=== PATIENT | male | born 1950 | race Two or more races ===

== ENCOUNTER 2024-04-16 12:46 | Inpatient (IN) | payer OTHER ==
[~2024-04-16] VITALS: Ht 177.8 cm; Wt 84.6 kg
[2024-04-16] VITALS (11 sets, daily range): BP systolic 103–131; BP diastolic 58–67; PULSE 69–77; RESP 12–25; TEMP 97.6–98.4; O2SAT 94–100
--- NOTE | 2024-04-16 13:25 | ED.PDOC ---
History of Present Illness HPI Comments 73 y/o M, with a Hx of HTN, HLD, DM, pancreatic CA, and EtOH and marijuana abuse, is BIBA for STEMI, today. Per EMS report, patient's family, initially, called on patient's behalf after he had sudden witnessed syncopal episode at home, today, following smoking 1x "joint" of marijuana and drinking heavy amoun ts of EtOH, earlier. Patient was found awake but intoxicated, with a blood pressure of 90/56, a blood glucose of 254, and with ST elevations in leads I through IV on scene. All remaining vitals were stated to have been within normal limits. En route, patient was given 323 ASA. At time of assessment, patient remains awake but still in intoxicated state and endorses on having no symptoms at this time. Further Hx cannot be obtained at this time, due to patient's current condition and absence of family/caretakers at this time. Time Seen by MD: 12:50 Reviewed Notes: Nurses Notes, Medications, Allergies Allergies: Coded Allergies: NO KNOWN ALLERGIES (Unverified , 04/16/24) Information Source: Patient, Emergency Med Personnel Mode of Arrival: EMS Severity: Moderate Timing: Hours Duration: Since onset Prehospital treatment: 12 Lead EKG, ASA (324mg ), Tin Pot Operator Past Medical History PAST MEDICAL HISTORY: Cancer (pancreatic CA ), DM, High Lipids, HTN Surgical History: Denies all surgeries Family History Family History: Unknown Social History Smoker: Non-Smoker Alcohol: Heavy Drugs: Marijuana Lives In: Home Cardiovascular: reports: syncope All Other Systems: Reviewed and Negative Physical Exam General Appearance: No Apparent Distress, Normal, Other (intoxicated ) HEENT: Normal ENT Inspection, Pharynx Normal, TMs Normal Neck: Full Range of Motion, Non-Tender, Normal, Normal Inspection Respiratory: Chest Non-Tender, Lungs Clear, No Accessory Muscle Use, No Respiratory Distress, Normal Breath Sounds Cardiovascular: No Edema, No JVD, No Murmur, No Gallop, Normal Peripheral Pulses, Regular Rate/Rhythm Breast Exam: Deferred Gastrointestinal: No Organomegaly, Non Tender, No Pulsatile Mass, Normal Bowel Sounds, Soft Genitalia: Deferred Pelvic: Deferred Rectal: Deferred Extremities: No calf tenderness, Normal capillary refill, Normal inspection, No rmal range of motion, Non-tender, No pedal edema Musculoskeletal : Apperance: Normal Neurologic: Alert, scaler packer II-XII nml as Tested, No Motor Deficits, Normal Affect, Normal Mood, No Sensory Deficits Cerebellar Function: Normal Reflexes: Normal Skin: Dry, Normal Color, Warm Lymphatic: No Adenopathy Was a procedure done? Was a procedure done?: No EKG EKG : Pulse Rate (adult): 68 [place]: Normal Cardiac Rhythm: NSR Block: None Hypertrophy: None Comments ST depression in multiple leads Differential Dx Considerations may include: STEMI, PE, ACS, angina, costochondritis, pericarditis, gastritis, viral syndrome, PNA, EtOH-intoxication X-Ray, Labs, Meds, VS Vital Signs Date Time Temp Pulse Resp B/P (MAP) Pulse Ox O2 Delivery O2 Flow Rate FiO2 04/16/24 13:25 68 04/16/24 12:53 69 12 102/50 (67) 95 04/16/24 12:52 69 12 95 Nasal Cannula* 4 36 04/16/24 12:50 98.4 72 16 92/54 (67) 96 04/16/24 12:48 68 Lab Test 04/16/24 13:00 Range/Units White Blood Count Pending Red Blood Count Pending Hemoglobin Pending Hematocrit Pending Mean Corpuscular Volume Pending Mean Corpuscular Hemoglobin Pending Mean Corpuscular Hemoglobin Concent Pending Red Cell Distribution Width Pending Platelet Count Pending Mean Platelet Volume Pending Neutrophils (%) (Auto) Pending Lymphocytes (%) (Auto) Pending Monocytes (%) (Auto) Pending Basophils (%) (Auto) Pending Neutrophils # (Auto) Pending Lymphocytes # (Auto) Pending Monocytes # (Auto) Pending Prothrombin Time Pending Prothrombin Time INR Pending Activated Partial Thromboplast Time Pending D-Dimer, Quantitative Pending Sodium Level Pending Potassium Level Pending Chloride Level Pending Carbon Dioxide Level Pending Anion Gap Pending Blood Urea Nitrogen Pending Creatinine Pending Glomerular Filtration Rate Calc Pending BUN/Creatinine Ratio Pending Serum Glucose Pending Calcium Level Pending Magnesium Level Pending Total Bilirubin Pending Aspartate Amino Transferase (AST) Pending Alanine Aminotransferase (ALT) Pending Alkaline Phosphatase Pending Troponin I High Sensitivity Pending B-Type Natriuretic Peptide Pending Total Protein Pending Albumin Pending Current Medications Medications (Trade) Dose Ordered Sig/Shashi Route Start Time Stop Time Status Last Admin Sodium Chloride 1,000 ml @ 150 mls/hr Q6H40M ONCE IV 04/16/24 13:00 04/16/24 19:39 04/16/24 13:37 X-Ray, Labs, Meds, VS Comment This 63-year-old male presents emergency room secondary to being altered. In route, the patient endorses drinking alcohol with some chest pain. He was also was noted to have multiple leads with elevation and depression. Cardiology was consulted who noted the patient may be having acute ST-elevation AR. Patient was transferred to the rn labor delivery. Time of 1ST Reevaluation: 13:20 Reevaluation 1ST: Unchanged Patient Education/Counseling: Other (patient is intoxicated ) Family Education/Counseling: No Family Present Departure 1 Departure Time of Disposition: 13:57 Impression: Primary Impression: Chest pain Additional Impressions: Dyspnea STEMI (ST elevation myocardial infarction) Disposition: ADMITTED INPATIENT Admit to: Tele Condition: Critical Critical Care Note Critical Care Time?: No Stability Stability form required: No Heart Score Heart Score: Heart Score Response (Comments) Value History Highly Suspicious 2 EKG Repolarization Disturb 1 Age >65 2 Risk Factors >3 or Hx ASHD 2 Troponin N/A 0 Total 7 I personally scribed for VJ HARO MD ([email or web address]) on 04/16/24 at 13:25. El ectronically submitted by Valentín Castillo [email or web address]). VJ HARO MD Apr 16, 2024 13:25
[2024-04-16] MEDS: LIDOCAINE 2%HCL (LOCAL ANESTH.) INJ 20ML MDV ONE (13:31)
[2024-04-16] MEDS: SODIUM CHL 0.9% 0 ML ONE (13:31)
[2024-04-16] MEDS: IODIXANOL 320MG/ML 100ML BTL IV ONE (13:31)
[2024-04-16] MEDS: ANGIOMAX 250 MG VIAL IV ONE (13:31)
[2024-04-16] MEDS: VERAPAMIL 2.5MG/ML INJ 2ML VIAL IV ONE (13:35)
[2024-04-16] MEDS: NITROGLYCERIN 50MG/250ML 250 ML IV ONE (13:36)
[2024-04-16 13:37] LABS: Basophils # (auto) 0 10 ^3/uL (0-0.2); Basophils % (auto) 0.7 % (0.0-2.0); Eosinophils # (auto) 0.1 10 ^3/uL (0-0.8); Eosinophils % (auto) 1.9 % (0.0-7.0); Hematocrit 33.7 % (41.0-53.0); Hemoglobin 11.7 g/dL (13.5-17.5); Lymphocytes # (auto) 2.2 10 ^3/uL (0.4-5.4); Lymphocytes % (auto) 35.5 % (10.0-50.0); Mean Corpuscular Hemoglobin 32.4 pg (28.0-32.0); Mean Corpuscular Hgb Conc. 34.8 g/dL (32.0-36.0); Mean Corpuscular Volume 93.2 fL (80.0-100.0); Monocytes # (auto) 0.5 10 ^3/uL (0-1.3); Monocytes % (auto) 7.9 % (0.0-12.0); Neutrophils # (auto) 3.3 10 ^3/uL (1.6-8.6); Nucleated Red Blood Cells % 0.1 %; Platelet Count (auto) 179 10^3/uL (140-450); Red Blood Cells 3.62 10^6/uL (4.5-5.90); Red Cell Distribution Width 12.8 % (11.8-14.3); White Blood Cell 6.1 10^3/uL (4.4-10.8)
[2024-04-16] MEDS: SODIUM CHLORIDE 0.9% 1,000 ML IV ONE (13:37)
--- NOTE | 2024-04-16 13:43 | DVH ---
CHEST RADIOGRAPH Indication: chest pain Technique: Single frontal view of the chest was obtained Comparison: None FINDINGS: Lines and Tubes: None Lungs: No focal consolidation. Bronchovascular crowding due to low lung volumes. Mild elevation of th e right hemidiaphragm. Pleura: No effusion. No pneumothorax. Cardiomediastinal contours: Unremarkable Bones: No acute osseous abnormality. Old fracture deformity of left-sided ribs 7 through 9 IMPRESSION: Bronchovascular crowding due to low lung volumes. No focal consolidation.
--- NOTE | 2024-04-16 13:46 | DVH ---
EXAM: CT HEAD WITHOUT CONTRAST HISTORY: altered COMPARISON: None TECHNIQUE: Axial images were obtained and reformatted in coronal and sagittal planes. All CT scans at this medical facility are performed using dose modulation techniques as appropriate t o a performed exam including the following: Automated exposure control was utilized; adjustment of th e MA and/or KV according to patient size; and use of iterative reconstruction technique. CT Dose: CTDI volume is 65.92 mGy. Dose-length product is 1188.36 mGy*cm FINDINGS: Supratentorial Region: No evidence for large acute territorial ischemia. No intracranial hemorrhage is noted. Posterior Fossa: No acute abnormality. Brainstem: Unremarkable. Sellar/Suprasellar Region: Unremarkable. Ventricles, Cisterns, Sulci: Age-appropriate. Orbits: Unremarkable. Paranasal Sinuses: Unremarkable. Mastoid Air Cells: Unremarkable. Vasculature: Unremarkable. Bones/Soft Tissues: No acute abnormality. Other: None. IMPRESSION: 1. Suboptimal motion degraded study. 2. No large acute territorial ischemia or intracranial hemorrhage noted. If there is high clinical c oncern for acute ischemia, further evaluation with MRI or repeat CT could be considered.
[2024-04-16 13:54] LABS: Alanine Aminotransferase 23 U/L (7-40); Albumin 3.8 g/dL (3.2-4.8); Alkaline Phosphatase 85 U/L (46-116); Anion Gap 10 (5-15); BUN/Creatinine Ratio 23.2 (10.0-20.0); Carbon Dioxide 23 mmol/L (20-31); Chloride 98 mmol/L (98-107); Magnesium 2.1 mg/dL (1.6-2.6); Potassium 4.6 mmol/L (3.5-5.1)
[2024-04-16 13:55] LABS: Bilirubin, Total 0.5 mg/dL (0.2-1.0)
[2024-04-16 14:07] LABS: Aspartate Aminotransferase 13 U/L (13-40); Blood Urea Nitrogen 33 mg/dL (9-23); Glucose 230 mg/dL (74-106); Sodium 131 mmol/L (136-145)
[2024-04-16 14:20] LABS: INR 0.97 (0.9-1.15); Partial Thromboplastin Time 21.6 SEC (24.5-34.5); Prothrombin Time 10.3 sec (9.3-11.8)
[2024-04-16] MEDS ORDERED: NITROGLYCERIN 0.4 MG SL TAB SL PRN (14:45)
[2024-04-16] MEDS ORDERED: MORPHINE SULFATE INJ 2 MG/ml SYRG IV PRN (14:45)
--- NOTE | 2024-04-16 16:16 | DVHOP ---
DATE OF SURGERY: 04/16/2024 TECHNIQUE PERFORMED: * Code STEMI. * Insertion of a 6-[place] arterial line from right femoral artery under fluoroscopic guidance. * Left heart catheterization. * Left ventriculogram. * Management of conscious sedation. * [place] selective left coronary angiography. * Right iliofemoral artery angiography. * Arteriotomy. * Angio-Seal of the right femoral artery. COMPLICATIONS: None. ASSISTANTS: Assisted by Anna Ceballos Janice, and Rosas. Today is Wednesday, I saw on 04/16/2024. INDICATIONS: The patient has come into the hospital with left bundle-branch block pattern, altered level of consciousness, and we do not have any previous EKG for comparison. CT of the head was done urgently, which is negative. DESCRIPTION OF PROCEDURE: Risks and benefits have been explained, and informed consent obtained and brought to the lab manager. The patient's right groin was shaved, and was cleaned with soap and Betadine; lidocaine was given IV and IV sedation was given. A 6-[place] arterial line was placed under fluoroscopy. Prior to that, I punctured the right radial artery before for 2 times, but unable to get a wire up. After going smoothly for 2.5 cm or so, from the radial artery was not been continued, so now we have continued from the right femoral artery. A line was placed in a standard manner, and subsequently now, we have put a JL4 catheter and left coronary angiography was done. With the help of JR4 catheter, we also did a right coronary angiography. A complete left heart catheterization had been done. The left ventricle was done utilizing the oblique view with total of 20 mL dye. Post-LV gram, left ventriculography performed with the help of pull-through technique. Aortic pressure was also performed. The pigtail catheter also had been discontinued. At the end of the procedure, we also did a right iliofemoral artery angiography, arteriotomy. Angio-Seal of the right femoral artery also has been done. Procedure completed. IMPRESSION: * Normal left main. * The left anterior descending artery is widely open and is normal. * Circumflex artery, the obtuse marginal artery in the most proximal region is narrowed 50%. It is a large luminal artery. * The patient's right coronary artery is a nondominant artery and normal with an ejection fraction in the range of 50. The ejection fraction of left ventricle is 35%. Apical anterior wall, [id number] hypokinesis has been noted. Dilated left ventricle. CONCLUSION: * This patient have a takotsubo syndrome and the apical anterior wall and apical inferior wall have become hypokinetic. * Dilation of the left ventricle. * Ejection fraction in the range of 35%. * The normal left artery. * The circumflex artery is a dominant artery. * Obtuse marginal artery in the most proximal region is narrowed 50%, but it is not critical. * The right coronary artery is nondominant and is normal. PLAN OF ACTION: At this time, the patient's and several family members have been explained over here, counseling done, questions answered, information given and avoid alcohol. Aspirin to be taken. Beta-veto only if his heart rate remained stable and then put him on cholesterol-reducing medicine. Sunitha Talley MD MP/MANUEL/ANT TID: [id number] RECEIPT: [id number] [facility]
[2024-04-16] MEDS ORDERED: DEXTROSE (50%) 50ML SYRG IV PRN (19:00)
--- NOTE | 2024-04-16 19:08 | DVHHP2 ---
History of Present Illness History of Present Illness 73 y/o M, with a Hx of HTN, HLD, DM, pancreatic CA, and EtOH and marijuana abuse, is BIBA after syncope, enroute confirmation for STEMI. Per EMS report, patient's family, initially, called on patient's behalf after he had sudden witnessed syncopal episode at home, today, following smoking 1x "joint" of marijuana and drinking heavy amounts of EtOH, earlier. Patient was found awake but intoxicated, with a blood pressure of 90/56, a blood glucose of 254, and with ST elevations in leads I through IV on scene. All remaining vitals were stated to have been within normal limits. En route, patient was given 323 ASA. At time of ED assessment, patient remains awake but still in intoxicated state and endorses on having no symptoms at this time. Code STEMI was called, patient is taken to analytical laboratory technician immediately. On recovery patient evaluated and is alert and oriented x3. He does not appear to know how he ended up in the hospital. After procedure he declines any chest pain but does endorse that he has chronic GERD of which he feels some symptoms. No abdominal pain, nausea vomiting, headache, chest pain, urinary symptoms. Review of Systems Review of Systems Per HPI Allergies: Coded Allergies: NO KNOWN ALLERGIES (Unverified , 04/16/24) Medications Current Medications Medications Dose Ordered Sig/Shashi Route Start Time Stop Time Status Last Admin Dose Admin Nitroglycerin 0.4 mg Q5MINP PRN SL 04/16/24 14:45 Morphine Sulfate 2 mg Q30M PRN IV 04/16/24 14:45 Exam Vital Signs Vital Signs Date Time Temp Pulse Resp B/P (MAP) Pulse Ox O2 Delivery O2 Flow Rate FiO2 04/16/24 17:15 97.6 74 18 115/65 (82) 97 97.6 04/16/24 12:52 Nasal Cannula* 4 36 Exam GEN: Healthy appearing, well-developed, NAD. HEENT: NC/AT; MMM. CV: RRR, no m/r/g. LUNGS: CTAB, no w/r/c. ABD: Soft, NT/ND, NBS, no masses or organomegaly. EXT: skin Warm, well perfused. no rashes. No clubbing, cyanosis, or edema. NEURO: Ambulating with no limitations. No focal deficits. Labs/Xrays Labs Test 04/16/24 13:00 Range/Units White Blood Count 6.1 4.4-10.8 10^3/uL Red Blood Count 3.62 L 4.5-5.90 10^6/uL Hemoglobin 11.7 L 13.5-17.5 g/dL Hematocrit 33.7 L 41.0-53.0 % Mean Corpuscular Volume 93.2 80.0-100.0 fL Mean Corpuscular Hemoglobin 32.4 H 28.0-32.0 pg Mean Corpuscular Hemoglobin Concent 34.8 32.0-36.0 g/dL Red Cell Distribution Width 12.8 11.8-14.3 % Platelet Count 179 140-450 10^3/uL Mean Platelet Volume 8.4 6.9-10.8 fL Neutrophils (%) (Auto) 54.0 37.0-80.0 % Lymphocytes (%) (Auto) 35.5 10.0-50.0 % Monocytes (%) (Auto) 7.9 0.0-12.0 % Eosinophils (%) (Auto) 1.9 0.0-7.0 % Basophils (%) (Auto) 0.7 0.0-2.0 % Neutrophils # (Auto) 3.3 1.6-8.6 10 ^3/uL Lymphocytes # (Auto) 2.2 0.4-5.4 10 ^3/uL Monocytes # (Auto) 0.5 0-1.3 10 ^3/uL Eosinophils # (Auto) 0.1 0-0.8 10 ^3/uL Basophils # (Auto) 0 0-0.2 10 ^3/uL Nucleated Red Blood Cells 0.1 % Prothrombin Time 10.3 9.3-11.8 sec Prothrombin Time INR 0.97 0.9-1.15 Activated Partial Thromboplast Time 21.6 L 24.5-34.5 SEC D-Dimer, Quantitative 0.41 0.0-0.49 mg/L FEU Sodium Level 131 L 136-145 mmol/L Potassium Level 4.6 3.5-5.1 mmol/L Chloride Level 98 98-107 mmol/L Carbon Dioxide Level 23 20-31 mmol/L Anion Gap 10 5-15 Blood Urea Nitrogen 33 H 9-23 mg/dL Creatinine 1.42 H 0.700-1.30 mg/dL Glomerular Filtration Rate Calc 52 >90 mL/min BUN/Creatinine Ratio 23.2 H 10.0-20.0 Serum Glucose 230 H 74-106 mg/dL Calcium Level 9.0 8.7-10.4 mg/dL Magnesium Level 2.1 1.6-2.6 mg/dL Total Bilirubin 0.5 0.2-1.0 mg/dL Aspartate Amino Transferase (AST) 13 13-40 U/L Alanine Aminotransferase (ALT) 23 7-40 U/L Alkaline Phosphatase 85 46-116 U/L Troponin I High Sensitivity 7 </=54 ng/L B-Type Natriuretic Peptide 32.99 0-100 pg/mL Total Protein 6.0 5.7-8.2 g/dL Albumin 3.8 3.2-4.8 g/dL Assessment/Plan Assessment/Plan #Acute on chronic systolic heart failure- during angiogram LVEF is 35%, apical anterior wall with moderate to severe hypokinesis. Dilated left ventricle. Defer echo to in network facility [place]. We will defer starting FF medications also to accepting facility. # CAD, non stentable occlusions: Start metoprolol 12 b.i.d., losartan 12g daily, aspirin 81 daily, Lipitor 40 HIS #Code STEMI, RI ruled out - [facility] with no critical stenosis, there is 50% narrowing obtuse marginal artery non stentable. #Syncope, likely from heart failure versus alcohol intoxication. #Alcohol abuse / alcohol dependence - [facility] protocol #History of THC abuse - patient needs have HFrEF medications, cardiology consulted. - need intensive risk factor modification with diabetes and blood pressure control. Needs intensive lifestyle modifications and avoiding alcohol and any unprescribed drugs including THC. - we will need echo and close follow up with Cardiology #Hypertension - #Hyperlipidemia #Diabetes type 2 - mild SSI a.c. HS #History of pancreatic cancer #History GERD-Protonix 40 daily Diet cardiac GI prophylaxis- Protonix 40 daily DVT prophylaxis Lovenox 40 subQ Med tele Full code At this time patient is status post angiogram and is close monitoring given recent syncope likely from takotsubo cardiomyopathy versus acute systolic heart failure symptoms. We will need close monitoring for blood pressure and vitals and telemetry. Patient unstable for transfer at this point we will likely be stable after overnight monitoring. Plan discussed with: Patient Date of Service: Apr 16, 2024 Billing Provider: RADHA MELENDEZ MD Common Visit Codes: [id number] INP/OBS CARE (HIGH) RADHA MELENDEZ MD Apr 16, 2024 19:08
[2024-04-16] MEDS: FOLIC ACID 1 MG TAB PO ONE (19:41)
[2024-04-16] MEDS: PANTOPRAZOLE 40 MG TAB PO ONE (19:41)
[2024-04-16] MEDS: LACTATED RINGER'S 1,000 ML IV SCH (19:42)
[2024-04-16] MEDS: THIAMINE 100mg/ml INJ (200mg/2ml VIAL) IV ONE (19:42)
[2024-04-16] MEDS: ATORVASTATIN 20 MG TAB PO SCH (21:53)
[2024-04-16] MEDS: ACCU-CHEK COMFORT CURVE STRIP VI SCH (21:54)
[2024-04-16] MEDS: METOPROLOL TARTRATE 25 MG TAB PO SCH (21:54)
[2024-04-16] MEDS: InsuLIN REG 1unit/0.01ml Soln (100units/ml) SC SCH (22:00)
[2024-04-17] VITALS (7 sets, daily range): BP systolic 114–136; BP diastolic 51–62; PULSE 62–72; RESP 18–20; TEMP 98–98.1; O2SAT 96–100
--- NOTE | 2024-04-17 00:39 | DVHINCON2 ---
Date of service: Apr 16, 2024 Referring Physician Jennifer Reason for Consultation Severe acrotic anemia History of Present Illness This is a 73 year old male with a PMH of HTN, HLD, DM, pancreatic CA, and EtOH and marijuana abuse who presented to the ED as a code STEMI, today. Per EMS report, patient's family, initially, called on patient's behalf after he had sudden witnessed syncopal episode at home, today, following smoking 1x "joint" of marijuana and drinking heavy amounts of EtOH, earlier. Patient was found awake but intoxicated, with a blood pressure of 90/56, a blood glucose of 254, and with ST elevations in leads I through IV on scene. All remaining vitals were stated to have been within normal limits. En route, patient was given 323 Aspirin. Patient remains awake but still in intoxicated state and endorses on having no symptoms at this time. Further history cannot be obtained at this time, due to patient's current condition and absence of family/caretakers at this time. EKG is NSR at 68. ST depression in multiple leads. BUN 33, KNITTING MACHINE TENDER 1.42. Chest x-ray shows bronchovascular crowding due to low lung volumes. Troponin is WNL. Code STEMI was called, patient is taken to test lab technician immediately. Patient was admitted to the hospital. I am asked to consult on this patient. Family History: Colon cancer G8 MOTHER FH: pancreatic cancer G8 FATHER Allergies: Coded Allergies: NO KNOWN ALLERGIES (Unverified , 04/16/24) Current Medications Current Medications Medications (Trade) Dose Ordered Sig/Shashi Route PRN Reason Start Time Stop Time Status Last Admin Nitroglycerin (Ntrostat Sublingual) 0.4 mg Q5MINP PRN SL FOR CHEST PAIN 04/16/24 14:45 Morphine Sulfate 2 mg Q30M PRN IV FOR CHEST PAIN 04/16/24 14:45 Metoprolol Tartrate (Lopressor Tablet) 12.5 mg BID PO 04/16/24 22:00 04/16/24 21:54 Atorvastatin Calcium (Lipitor) 40 mg HS PO 04/16/24 22:00 04/16/24 21:53 Diagnostic Test (Pha) (Accu-Chek Comfort Curve T) 1 strip ACHS 04/16/24 22:00 04/16/24 21:54 Insulin Human Regular (InsuLIN R) ACHS SC 04/16/24 22:00 Dextrose 50 ml UD PRN IV Blood Sugar LESS THAN 60 04/16/24 19:00 Pantoprazole Sodium (Protonix Tablet) 40 mg DAILY@0600 PO 04/17/24 06:00 Aspirin 81 mg DAILY PO 04/17/24 10:00 Enoxaparin Sodium (Lovenox) 40 mg DAILY SC 04/17/24 10:00 Losartan Potassium (Cozaar Tablet) 12.5 mg DAILY PO 04/17/24 10:00 Thiamine HCl 100 mg DAILY PO 04/17/24 10:00 Folic Acid 1 mg DAILY PO 04/17/24 10:00 Lactated Ringer's 1,000 ml @ 125 mls/hr Q8H IV 04/16/24 19:15 04/16/24 19:42 Review of Systems All Other Systems: Reviewed and Negative Vital Signs Vital Signs Date Time Temp Pulse Resp B/P (MAP) Pulse Ox O2 Delivery O2 Flow Rate FiO2 04/16/24 21:54 71 127/66 04/16/24 21:00 98.4 18 100 98.4 04/16/24 20:00 Room Air* 0 21 Physical Exam GENERAL: Awake ,alert, oriented. Intoxicated. LUNGS: Clear. CARDIOVASCULAR: Heart sounds are good. ABDOMEN: Soft. Labs/Diagnostic Data Labs Test 04/16/24 21:59 04/16/24 13:00 Range/Units POC Glucose 124 H 70-106 mg/dl White Blood Count 6.1 4.4-10.8 10^3/uL Red Blood Count 3.62 L 4.5-5.90 10^6/uL Hemoglobin 11.7 L 13.5-17.5 g/dL Hematocrit 33.7 L 41.0-53.0 % Mean Corpuscular Volume 93.2 80.0-100.0 fL Mean Corpuscular Hemoglobin 32.4 H 28.0-32.0 pg Mean Corpuscular Hemoglobin Concent 34.8 32.0-36.0 g/dL Red Cell Distribution Width 12.8 11.8-14.3 % Platelet Count 179 140-450 10^3/uL Mean Platelet Volume 8.4 6.9-10.8 fL Neutrophils (%) (Auto) 54.0 37.0-80.0 % Lymphocytes (%) (Auto) 35.5 10.0-50.0 % Monocytes (%) (Auto) 7.9 0.0-12.0 % Eosinophils (%) (Auto) 1.9 0.0-7.0 % Basophils (%) (Auto) 0.7 0.0-2.0 % Neutrophils # (Auto) 3.3 1.6-8.6 10 ^3/uL Lymphocytes # (Auto) 2.2 0.4-5.4 10 ^3/uL Monocytes # (Auto) 0.5 0-1.3 10 ^3/uL Eosinophils # (Auto) 0.1 0-0.8 10 ^3/uL Basophils # (Auto) 0 0-0.2 10 ^3/uL Nucleated Red Blood Cells 0.1 % Prothrombin Time 10.3 9.3-11.8 sec Prothrombin Time INR 0.97 0.9-1.15 Activated Partial Thromboplast Time 21.6 L 24.5-34.5 SEC D-Dimer, Quantitative 0.41 0.0-0.49 mg/L FEU Sodium Level 131 L 136-145 mmol/L Potassium Level 4.6 3.5-5.1 mmol/L Chloride Level 98 98-107 mmol/L Carbon Dioxide Level 23 20-31 mmol/L Anion Gap 10 5-15 Blood Urea Nitrogen 33 H 9-23 mg/dL Creatinine 1.42 H 0.700-1.30 mg/dL Glomerular Filtration Rate Calc 52 >90 mL/min BUN/Creatinine Ratio 23.2 H 10.0-20.0 Serum Glucose 230 H 74-106 mg/dL Calcium Level 9.0 8.7-10.4 mg/dL Magnesium Level 2.1 1.6-2.6 mg/dL Total Bilirubin 0.5 0.2-1.0 mg/dL Aspartate Amino Transferase (AST) 13 13-40 U/L Alanine Aminotransferase (ALT) 23 7-40 U/L Alkaline Phosphatase 85 46-116 U/L Troponin I High Sensitivity 7 </=54 ng/L B-Type Natriuretic Peptide 32.99 0-100 pg/mL Total Protein 6.0 5.7-8.2 g/dL Albumin 3.8 3.2-4.8 g/dL Assessment Acute on chronic systolic heart failure. CAD, non stentable occlusions. Code STEMI. Syncope, likely from heart failure versus alcohol intoxication. Alcohol abuse / alcohol dependence. History of THC abuse. Hypertension. Hyperlipidemia. Diabetes type 2. History of pancreatic cancer . History GERD. Plan/Recommendation I agree with your ongoing assessment and care of plan. Left heart catheterization. Risks and benefits have been explained, and informed consent obtained Aspirin, Lipitor, Metoprolol. DVT and GI prophylactics. Losartan. Morphine for pain management. Additional plan as per the hospital course. A total of 45 minutes was spent reviewing the patient record, examining the patient, making a diagnostic and therapeutic plan, discussing this plan with [facility] [place] personnel, following up on diagnostic studies and following the patient for clinical stability excluding any and all procedures. At least 50% of this time was spent in direct, [id number] contact. Plan discussed with: Patient ADY WATKINS MD Apr 16, 2024 22:57
[2024-04-17] MEDS: PANTOPRAZOLE 40 MG TAB PO SCH (05:47)
[2024-04-17] MEDS: FOLIC ACID 1 MG TAB PO SCH (09:27)
[2024-04-17] MEDS: THIAMINE HCL 100 MG TAB PO SCH (09:28)
[2024-04-17] MEDS: LOSARTAN POTASSIUM 25 MG TAB PO SCH (09:30)
[2024-04-17] MEDS: ENOXAPARIN SOD 40 MG/0.4 ML SYRINGE SC SCH (09:35)
[2024-04-17] MEDS: ASPirin 81 mg TAB PO SCH (10:00)
[2024-04-17] MEDS: METOPROLOL TARTRATE 25 MG TAB PO ONE (10:03)
[2024-04-17] MEDS: ATORVASTATIN 20 MG TAB PO ONE (10:03)
[2024-04-17] MEDS: ASPirin 81 mg TAB PO ONE (10:03)
[2024-04-17] MEDS: LOSARTAN POTASSIUM 25 MG TAB PO ONE (10:03)
--- NOTE | 2024-04-17 10:55 | DVHSR ---
APPROVED REPORT EXAM: Two-dimensional and M-mode echocardiogram with Doppler and color Doppler. Blood Pressure: 131/67 mmHg INDICATION S/P STEMI RISK FACTORS Height: 5'10", Weight: 185 DIMENSIONS LVDd5.4 (3.8-5.7cm)LA (2D)4.6 (1.9-4.0cm)Aortic Root3.7 (2.0-3.7cm) LVDs4.3 (2.5-4.0cm)LA (MM) (1.9-4.0cm)Aortic Cusp Exc2.3 (1.5-2.0cm) EF (%) 40.0 (55-70%)Rt. Atrium4.2 (1.9-4.0cm)Asc. Aorta cm IVSd1.6 (0.7-1.1cm)RV (D)3.7 (1.8-2.4cm) PWd1.0 (0.7-1.1cm) Mitral Valve MitralMitral Stenosis E wave0.40m/sMV Mean GR.mmHg A wave0.81m/sMV Peak GR.mmHg E/A ratio0.52D MVAcm2 DECEL [id number] 1/2 Timems Aortic Valve Aortic ValveAortic Stenosis V10.82m/Mata Mean GR.2mmHg V21.05m/Mata Peak GR.4mmHg LVOT Diameter2.4 (1.8-2.4cm)Doppler AVA3.53cm2 AI P 1/2 [id number] Pulmonic Valve V20.71m/s Other Information Technically limited study due to body habitus. Conclusion DILATED ALL CARDIAC CHAMBERS LV IS MODERATELY DILATED AND GLOBALLY HYPOKINETIC LV EJECTION FRACTION IS 40% AND IS REDUCED NORMAL VALVES NO EFFUSION STUDY CONSISTENT WITH DILATED CARDIOMYOPATHY
--- NOTE | 2024-04-17 14:21 | DVHDS2 ---
Discharge Summary Date of Admission Apr 16, 2024 at 14:38 Date of Discharge: Apr 17, 2024 Labs/Diagnostic Data: Laboratory Results Test 04/17/24 11:47 04/16/24 13:00 POC Glucose 212 mg/dl (70-106) White Blood Count 6.1 10^3/uL (4.4-10.8) Red Blood Count 3.62 10^6/uL (4.5-5.90) Hemoglobin 11.7 g/dL (13.5-17.5) Hematocrit 33.7 % (41.0-53.0) Mean Corpuscular Volume 93.2 fL (80.0-100.0) Mean Corpuscular Hemoglobin 32.4 pg (28.0-32.0) Mean Corpuscular Hemoglobin Concent 34.8 g/dL (32.0-36.0) Red Cell Distribution Width 12.8 % (11.8-14.3) Platelet Count 179 10^3/uL (140-450) Mean Platelet Volume 8.4 fL (6.9-10.8) Neutrophils (%) (Auto) 54.0 % (37.0-80.0) Lymphocytes (%) (Auto) 35.5 % (10.0-50.0) Monocytes (%) (Auto) 7.9 % (0.0-12.0) Eosinophils (%) (Auto) 1.9 % (0.0-7.0) Basophils (%) (Auto) 0.7 % (0.0-2.0) Neutrophils # (Auto) 3.3 10 ^3/uL (1.6-8.6) Lymphocytes # (Auto) 2.2 10 ^3/uL (0.4-5.4) Monocytes # (Auto) 0.5 10 ^3/uL (0-1.3) Eosinophils # (Auto) 0.1 10 ^3/uL (0-0.8) Basophils # (Auto) 0 10 ^3/uL (0-0.2) Nucleated Red Blood Cells 0.1 % Prothrombin Time 10.3 sec (9.3-11.8) Prothrombin Time INR 0.97 (0.9-1.15) Activated Partial Thromboplast Time 21.6 SEC (24.5-34.5) D-Dimer, Quantitative 0.41 mg/L FEU (0.0-0.49) Sodium Level 131 mmol/L (136-145) Potassium Level 4.6 mmol/L (3.5-5.1) Chloride Level 98 mmol/L (98-107) Carbon Dioxide Level 23 mmol/L (20-31) Anion Gap 10 (5-15) Blood Urea Nitrogen 33 mg/dL (9-23) Creatinine 1.42 mg/dL (0.700-1.30) Glomerular Filtration Rate Calc 52 mL/min (>90) BUN/Creatinine Ratio 23.2 (10.0-20.0) Serum Glucose 230 mg/dL (74-106) Calcium Level 9.0 mg/dL (8.7-10.4) Magnesium Level 2.1 mg/dL (1.6-2.6) Total Bilirubin 0.5 mg/dL (0.2-1.0) Aspartate Amino Transferase (AST) 13 U/L (13-40) Alanine Aminotransferase (ALT) 23 U/L (7-40) Alkaline Phosphatase 85 U/L (46-116) Troponin I High Sensitivity 7 ng/L (</=54) B-Type Natriuretic Peptide 32.99 pg/mL (0-100) Total Protein 6.0 g/dL (5.7-8.2) Albumin 3.8 g/dL (3.2-4.8) Other Laboratory Tests 04/16/24 13:00 Brief Hx & Hospital Course: see dictated note Condition at Discharge: Fair Final Diagnosis/Problems List chf Discharge Disposition: Acute Care Facility Discharge Instruct/Medications Diet: Consistent carbohydrate, Cardiac 2g Na,low cholest Activity: No Restrictions, As Tolerated Follow Up/Referral: fu with [facility] Medications: per jun Discharge Statement: "Patient was advised to return to the ER or call 911 if any headaches, dizziness, shortness of breath, chest pain, abdominal pain, bleeding, fevers, or worsening of medical condition. Patient was counseled about treatment plan, medications, possible side effects, patientverbalized understanding. All questions were answered to the best of my ability. This discharge took greater then 30 minutes in planning, reviewing documentation, counseling the patient, and discussing with other team members." ASSESSMENT ASSESSMENT Assessment chf Date of Service: Apr 17, 2024 Billing Provider: RADHA POLANCO MD Common Visit Codes: 48870-YGW/OBS DISCH DAY >30min Secondary Visit Codes: 58070-NQJKW CHNG SMOKING >10MIN, 53887-[id number] CARE PLAN 30 MINUTES RADHA POLANCO MD Apr 17, 2024 14:21
--- NOTE | 2024-04-17 14:57 | DVHDS ---
DATE OF DISCHARGE: 04/17/2024 TRANSFER SUMMARY DATE OF TRANSFER: 04/17/2024 HISTORY OF PRESENT ILLNESS: The patient is a 73-year-old gentleman who was admitted with history of syncopal episode after he had heavy amounts of alcohol and smoke marijuana. The patient was also noted to have low blood pressure at the site. The patient has history of hypertension, diabetes, prostate cancer and chronic GERD. HOSPITAL COURSE: The patient had a chest x-ray that showed evidence of cardiomegaly with a head CT that showed no acute ischemia. The patient was seen in Cardiology consult by Dr. Talley. The patient had an echocardiogram done that showed ejection fraction of about 40%. The patient underwent coronary angiography that showed evidence of ejection fraction 35% with takotsubo syndrome with apical anterior wall and apical inferior wall hypokinesis. He had a 50% narrowing of the obtuse marginal artery. The patient will now be transferred to [facility] for further management. FINAL DIAGNOSES: Therefore, * Syncope with takotsubo syndrome. * Likely acute systolic/diastolic heart failure. * Hyponatremia. * Acute renal failure, questionable vasomotor nephropathy. * Diabetes mellitus. * History of hypertension. * Hyperlipidemia. * History of prostate cancer. * Tobacco abuse, for which the patient was counseled to quit. Nicotine patch was refused. Time spent was 11 minutes. * Alcohol and marijuana abuse. Advance care planning time was 19 minutes. The patient is a full code. Time spent in discharge planning and review of plan with the patient's family with whom I also reviewed the angiography report and paperwork was 41 minutes. MD RUSSEL Lerma/NÉSTOR TID: [id number] RECEIPT: [id number]
[2024-04-17 17:09] LABS: Urine Bacteria None Seen /hpf (None Seen)
[2024-04-17 17:35] LABS: Urine Blood Negative /uL (Negative); Urine Clarity Clear (Clear); Urine Color Light-Yellow (Yellow); Urine Protein, UAD Negative (Negative); Urine Urobilinogen Normal (Negative); Urine WBC 1 /hpf (0 - 3); Urine pH 6.5 (5.0-9.0)
--- NOTE | 2024-04-17 22:55 | DVHPN2 ---
Progress Note - Dictate Date Seen: Apr 17, 2024 Medical Necessity Reason Pt with a Central, PICC or Fol: No Subjective Patient was seen and evaluated in follow up. Patient underwent left heart catheterization, [place] selective left coronary angiography. This patient have a takotsubo syndrome and the apical anterior wall and apical inferior wall have become hypokinetic. Dilation of the left ventricle. Ejection fraction in the range of 35%. The normal left artery. The circumflex artery is a dominant artery. Obtuse marginal artery in the most proximal region is narrowed 50%, but it is not critical. The right coronary artery is nondominant and is normal. At this time, the patient's and several family members have been explained over here, counseling done, questions answered, information given and avoid alcohol. Aspirin to be taken. Beta-veto only if his heart rate remained stable and then put him on cholesterol-reducing medicine. vital signs Vital Sign Date Time Temp Pulse Resp B/P (MAP) Pulse Ox O2 Delivery O2 Flow Rate FiO2 04/17/24 22:11 70 134/63 04/17/24 17:10 98.1 18 96 98.1 04/17/24 08:00 Room Air* 0 21 Total Intake and Output 04/16/24 04/16/24 04/17/24 15:00 23:00 07:00 Intake Total 950 ml 600 ml Output Total 600 ml Balance 350 ml 600 ml medications Current Medications Medications Dose Ordered Sig/Shashi Route Start Time Stop Time Status Last Admin Dose Admin Nitroglycerin 0.4 mg Q5MINP PRN SL 04/16/24 14:45 Morphine Sulfate 2 mg Q30M PRN IV 04/16/24 14:45 Metoprolol Tartrate 12.5 mg BID PO 04/16/24 22:00 04/17/24 22:11 12.5 MG Atorvastatin Calcium 40 mg HS PO 04/16/24 22:00 04/17/24 22:07 40 MG Diagnostic Test (Pha) 1 strip ACHS 04/16/24 22:00 04/17/24 17:57 1 STRIP Insulin Human Regular ACHS SC 04/16/24 22:00 04/17/24 12:09 4 UNITS Dextrose 50 ml UD PRN IV 04/16/24 19:00 Pantoprazole Sodium 40 mg DAILY@0600 PO 04/17/24 06:00 04/17/24 05:47 40 MG Aspirin 81 mg DAILY PO 04/17/24 10:00 Enoxaparin Sodium 40 mg DAILY SC 04/17/24 10:00 04/17/24 09:35 40 MG Losartan Potassium 12.5 mg DAILY PO 04/17/24 10:00 04/17/24 09:30 12.5 MG Thiamine HCl 100 mg DAILY PO 04/17/24 10:00 04/17/24 09:28 100 MG Folic Acid 1 mg DAILY PO 04/17/24 10:00 04/17/24 09:27 1 MG objective GENERAL: Awake ,alert, oriented. Intoxicated. LUNGS: Clear. CARDIOVASCULAR: Heart sounds are good. ABDOMEN: Soft. laboratory and microbiology Laboratory Tests 04/16/24 13:00 Test 04/16/24 13:00 Range/Units Serum Glucose 230 H 74-106 mg/dL Problem List Acute on chronic systolic heart failure. CAD, non stentable occlusions. Code STEMI. Syncope, likely from heart failure versus alcohol intoxication. Alcohol abuse / alcohol dependence. History of THC abuse. Hypertension. Hyperlipidemia. Diabetes type 2. History of pancreatic cancer. History GERD. Takotsubo syndrome. Assessment/Plan Continued all current supportive medical care. Aspirin, Lipitor, Metoprolol. DVT and GI prophylactics. Losartan. Morphine for pain management. Additional plan as per the hospital course. Plan discussed with: Patient ADY WATKINS MD Apr 17, 2024 22:54
--- NOTE | 2024-04-18 14:00 | ECG ---
[facility] Test Date: 2024-04-16 Test Time: 12:48:22 Pat Name: MIK BARTON Department: ER Room: [facility] Gender: M [employer] Consultant: JASSI : 1950 Requested By: VJ HARO Order Number: [id number] Reading MD: Measurements Intervals [place] Rate: 68 P: 76 ID: [id number] QRS: 61 QRSD: 179 T: 209 QT: 476 QTc: 507 Interpretive Statements Sinus rhythm IVCD, consider atypical LBBB Baseline wander in lead(s) V3 Please click the below link to view image of tracing.
== END 2024-04-17 23:27 | disposition short-term general hospital (02) | DRG 286 ==
LOC: EDBD 12:46 → ER 12:46 → TELE 14:38 → TELE-WESTW 17:23
PROVIDERS: ADMIT Specialist; ATTEND Internal Medicine
PROC: B211YZZ Fluoroscopy of Multiple Coronary Arteries using Other Contrast (ICD-10-PCS; principal; 2024-04-16)
PROC: 4A023N7 Measurement of Cardiac Sampling and Pressure, Left Heart, Percutaneous Approach (ICD-10-PCS; 2024-04-16)
PROC: B215YZZ Fluoroscopy of Left Heart using Other Contrast (ICD-10-PCS; 2024-04-16)
PROC: 04HY32Z Insertion of Monitoring Device into Lower Artery, Percutaneous Approach (ICD-10-PCS; 2024-04-16)
PROC: B41FYZZ Fluoroscopy of Right Lower Extremity Arteries using Other Contrast (ICD-10-PCS; 2024-04-16)
DX: I25.10 Atherosclerotic heart disease of native coronary artery without angina pectoris (principal); I50.43 Acute on chronic combined systolic (congestive) and diastolic (congestive) heart failure; N17.0 Acute kidney failure with tubular necrosis; E87.1 Hypo-osmolality and hyponatremia; I11.0 Hypertensive heart disease with heart failure; F10.229 Alcohol dependence with intoxication, unspecified; Y90.9 Presence of alcohol in blood, level not specified; E78.5 Hyperlipidemia, unspecified; F12.10 Cannabis abuse, uncomplicated; K21.9 Gastro-esophageal reflux disease without esophagitis; I44.7 Left bundle-branch block, unspecified; E11.9 Type 2 diabetes mellitus without complications; Z85.07 Personal history of malignant neoplasm of pancreas; I25.2 Old myocardial infarction; Z80.0 Family history of malignant neoplasm of digestive organs; Z85.46 Personal history of malignant neoplasm of prostate; Z72.0 Tobacco use
CPT/HCPCS: 36415; 70450; 71045; 75710; 80053; 81001; 82962; 83735; 83880; 84484; 85025; 85379; 85610; 85730; 86850; 86900; 86901; 93306; 93458; 96360; G0378; J1815; Q9967